=== PATIENT | male | born 1940 | race Caucasian/White ===

== ENCOUNTER → 2017-03-30 | Outpatient (CLI) | payer OTHER, MEDICARE ==
[~2017-03-30] VITALS: Ht 177.8 cm; Wt 68.5 kg
[~2017-03-30] MED LIST: LIPITOR 20 MG T20 M1 PO; TRAMADOL HCL50 MG PO; VITAMIN D2000 UNIT PO; VITAMINC500 PO
--- NOTE | ~2017-03-30 | HPC ---
[facility] [place] [address] PAIN MANAGEMENT CONSULTATION Name: ORTIZ MAN [id number] Admission: 03/30/17 Attend Phys: Abdelrahman Lopez MD Discharge: Date of : 42 Report #: [id number] THIS REPORT FOR: //name// CC: Rizwan Lopez DATE OF SERVICE: 03/30/2017 DATE OF REGISTRATION: 03/30/2017. REASON FOR VISTI: Followup visit for lumbar radiculopathy. SUBJECTIVE: The patient returns to pain clinic today for another epidural injection. Since I initially began providing this therapy for him, he has been returning in 4-6 month intervals. Since March of last year, he has had 4 previous epidural injections, roughly an injection every 3-4 months. Pain once again is the same location, low back radiating into the right anterolateral thigh as well as into the posterior thigh. I have been injecting at L3 and L4. I have initially provided his first injection at the level L4-5 where his pathology appears to be. All the dye prior to the injections of local anesthetic and triamcinolone moved in a caudad direction. For that reason, I have been injecting him higher. X-rays reveal that there is a degenerative disk with lateral tilt to the right at L4-L5, there is also a longstanding degenerative disk at L2-L3 with significant disk osteophyte and spurring on the left. He is asymptomatic on that side. MEDICATIONS: Unchanged, vitamin C, vitamin D, Lipitor. ALLERGIES: None. PHYSICAL EXAMINATION: GENERAL: Pleasant, alert and oriented, without signs of depression, anxiety or overmedication. VITAL SIGNS: Blood pressure 124/88, heart rate 77, BMI is 21.7. NEUROLOGIC: He has mild straight leg raising noted on the right in the L3-L4 distribution. IMPRESSION: Chronic lumbar radiculopathy. PROCEDURE: Epidural steroid injection under fluoroscopic guidance at L3-L4. DESCRIPTION OF PROCEDURE: He was taken to fluoroscopic suite, placed prone, skin prepped with ChloraPrep. Skin anesthetized over L3-L4 to the right of midline. A 20-gauge Tuohy epidural needle advanced easily into the epidural space with loss of resistance. No blood or CSF aspirated. Then, 1 mL of [facility] [address] [place] [address] PAIN MANAGEMENT CONSULTATION Name: ORTIZ MAN Room #: REG [facility].#: [id number] Admission: 03/30/17 Attend Phys: Abdelrahman Lopez MD Discharge: Date of : 42 Report #: [id number] Omnipaque injected, spread of dye observed nicely into the epidural space and along the right lateral recess followed by 3 mL of 0.5% lidocaine mixed with 80 mg of triamcinolone. She tolerated the procedure well and was observed for 45 minutes and discharged. Followup visit planned as needed. No medications ordered . By: [id number] MD jared Moran
[2017-03-30 11:24] VITALS: BP 124/88
== END | disposition home or self-care (01) ==
LOC: PAIN 06:43
DX: M54.16 Radiculopathy, lumbar region (principal); G89.29 Other chronic pain; Z87.891 Personal history of nicotine dependence; Z98.890 Other specified postprocedural states